=== PATIENT | female | born 1940 | race Caucasian/White ===

== ENCOUNTER 2022-05-04 17:10 | Emergency (ER) | payer OTHER ==
[~2022-05-04] VITALS: Ht 157.5 cm; Wt 95.3 kg
[2022-05-04 17:15] VITALS: BP_SYST 174
--- NOTE | 2022-05-04 17:25 | NUR ---
PT PLACED IN BED 2.
--- NOTE | 2022-05-04 18:03 | NUR ---
MD SHIELDS AT BEDSIDE ASSESSING PT. Addendum: 05/04/22 at 1803 by [email or web address] ASSESSED PT.
[2022-05-04 18:46] LABS: BASOPHILS # (AUTO) 0.1 K/uL (0.0-0.2); BASOPHILS % (AUTO) 0.9 % (0.0-2.0); HEMATOCRIT 35.9 % (36-48); LYMPHOCYTES # (AUTO) 1.2 K/uL (1.0-5.5); MEAN CORPUSCULAR HEMOGLOBIN 27 pg (27-31); MEAN CORPUSCULAR HGB CONC 34 % (32-36); MEAN CORPUSCULAR VOLUME 81 fL (79.0-98.0); MONOCYTES # (AUTO) 0.9 K/uL (0.0-1.0); MONOCYTES % (AUTO) 13.3 % (1.7-9.3); NEUTROPHILS # (AUTO) 4.7 K/uL (1.8-7.7); NEUTROPHILS % (AUTO) 68.8 % (40.0-70.0); PLATELET COUNT (AUTO) 212 K/uL (130-430); RED BLOOD CELL COUNT(AUTO) 4.43 MIL/uL (4.2-6.2); RED CELL DISTRIBUTION WIDTH 15.5 % (9.0-15.0); WHITE BLOOD COUNT (AUTO) 6.9 K/uL (4.8-10.8)
[2022-05-04 19:11] LABS: ANION GAP 8 (5-15); CALCIUM 9.5 mg/dL (8.4-11.0); CHLORIDE 101 mmol/L (98-107); CREATININE 1.18 mg/dL (0.55-1.30); GLUCOSE 146 mg/dL (70-99); POTASSIUM 3.6 mmol/L (3.5-5.1); SODIUM SERUM 138 mmol/L (136-145); UREA NITROGEN, BLOOD 19 mg/dL (8-21)
[2022-05-04 19:17] LABS: ALANINE AMINOTRANSFERASE 9 U/L (12-78); ALBUMIN 3.2 g/dL (3.4-4.8); ASPARTATE AMINOTRANSFERASE 14 U/L (10-37); TOTAL BILIRUBIN 0.8 mg/dL (0.0-1.0)
--- NOTE | 2022-05-04 19:29 | NUR ---
Pt in bed resting. Pt reports still feeling short of breath and is talking in full sentences. O2 sat at 95% on RA, no labored breathing noted. Pt states she has lower back pain per pt this is a baseline. Safety precautions in place and pt connected to monitor.
[2022-05-04 20:46] VITALS: BP_SYST 119
--- NOTE | 2022-05-04 20:46 | NUR ---
Patient given written and verbal discharge instructions and verbalizes understanding. ER Dr. Lynn discussed with patient the results and treatment provided. Patient in stable condition. ID arm band removed. Rx of presidone and albuterol given. Patient educated on pain management and to follow up with PMD. Pain Scale 0. Opportunity for questions provided and answered. Medication side effect fact sheet provided.
== END 2022-05-04 20:46 | disposition home or self-care (01) ==
LOC: SED 17:10
DX: J45.909 Unspecified asthma, uncomplicated (principal); R05.9 Cough, unspecified; R06.02 Shortness of breath; I10 Essential (primary) hypertension; R07.81 Pleurodynia; Z20.822 Contact with and (suspected) exposure to COVID-19
CPT/HCPCS: 36415; 71045; 80053; 83605; 83880; 84484; 85025; 93005; 99285